=== PATIENT | female | born 1945 | race Caucasian/White ===

== ENCOUNTER 2017-10-14 23:35 | Emergency (ER) | payer OTHER ==
[~2017-10-14] VITALS: Ht 149.9 cm; Wt 61.1 kg
[~2017-10-14 23:35] MED LIST: DICY20TA35 PO; DIPH25CA65 PO; LACT1TAB4 PO; LISI-729 PO; ONDA4TAB7 SL; RXC5 PO; SENNTAB23 PO; SUMA25TA PO; TRAM-453 PO
[2017-10-14 23:37] VITALS: TEMP 36.8; Ht 149.9 cm; Wt 61.1 kg
[2017-10-14] MEDS ORDERED: SODIUM CHLORIDE 0.9% 1000ML 1,000 ML IV STA (23:49)
[2017-10-14] MEDS ORDERED: ONDANSETRON INJ 2 MG/ML 2 ML VIAL IV STA (23:49)
[2017-10-14] MEDS ORDERED: MoRPHine SULFATE 10 MG/ML CARP/VIAL IV STA (23:49)
--- NOTE | 2017-10-15 00:06 | EMERGENCY ROOM VISIT NOTE ---
History Report prepared by Staci: Octavio Casas Under the Supervision of: Dr. Kit Hoyt M.D. First contact with patient: 23:45 Chief Complaint: ABDOMINAL PAIN Stated Complaint: STOMACH PAIN, DIARRHEA History of Present Illness The patient is a 72 year old female who presents to the Emergency Room with complaints of constant abdominal pain that began at 1600. She rates her discomfort as an 8/10 in severity. The patient states that she has a history of colitis, and she believes is currently experiencing a colitis attack. She states that she has been experiencing constant diarrhea and abdominal pain throughout the day. The patient states that she has been experiencing blood in her diarrhea. She reports that she tried to take Bentyl for her symptoms, but reports she became nauseous and vomited it back up. The patient denies fevers, chills, syncope, chest pain, and shortness of breath. The patient states that she recently had a sinus infection a couple of weeks ago. She reports that she went to her doctor who prescribed amoxicillin and told her to take until she felt better. The patient states that she only took two days worth of antibiotics and reports she felt relieved of symptoms. She starts that during this time, she was also using probiotics. Source of History: patient Onset: 1600 Position: abdomen Symptom Intensity: 8/10 Timing: constant Associated Symptoms: + nausea, + vomiting, + diarrhea (with blood), No LOC, No fevers, No chills, No chest pain, No SOB Review of Systems See HPI for pertinent positives & negatives. A total of 10 systems reviewed and were otherwise negative. Past Medical & Surgical Medical Problems: (1) Cardiac Dysrhythmia Nos (2) Chronic Sinusitis Nos (3) Clostridium difficile colitis (4) Hypertension Nos (5) Rectal bleeding Family History No significant family history Social History Smoking Status: Never Smoker Alcohol Use: none Drug Use: none Marital Status: Housing Status: lives with family Occupation Status: retired Current/Historical Medications Scheduled Lactobacillus (Floranex), 3-4 TAB PO QID Lisinopril (Zestril), 5 MG PO QAM Sennosides-Docusate Sodium (Stool Softener), 1 TAB PO QAM Sumatriptan Succinate (Imitrex), 25 MG PO DIRECTED Scheduled PRN Dicyclomine Hcl (Bentyl), 20 MG PO DAILY PRN for PRN Diphenhydramine Hcl (Benadryl Allergy), 25 MG PO DAILY PRN for PRN Tramadol Hcl (Ultram), 1-2 TABLETS PO Q6 PRN for Pain Allergies Coded Allergies: Adhesives (Verified Allergy, Unknown, ADHESIVE TAPE = REDNESS/ TEARS SKIN- EVEN PAPER TAPE, 05/02/15) Amoxicillin (Verified Adverse Reaction, Unknown, got c.diff after taking amoxicillin 2012, 05/02/15) Physical Exam Vital Signs Date Time Temp Pulse Resp B/P (MAP) Pulse Ox O2 Delivery O2 Flow Rate FiO2 10/15/17 02:00 155/79 10/15/17 01:55 82 97 10/15/17 01:40 82 16 94 10/15/17 01:32 169/84 10/15/17 01:31 77 16 169/84 94 Room Air 10/15/17 01:25 72 13 94 10/15/17 01:10 73 12 92 10/15/17 01:01 145/82 10/15/17 00:55 72 13 93 10/15/17 00:40 83 12 93 10/15/17 00:35 81 13 92 10/15/17 00:31 166/86 10/15/17 00:20 77 18 96 10/15/17 00:05 88 14 95 Room Air 10/15/17 00:01 182/92 10/14/17 23:55 184/102 10/14/17 23:37 36.8 84 20 165/104 97 Room Air Physical Exam GENERAL: Patient is uncomfortable appearing and in moderate distress. HEENT: No acute trauma, normocephalic atraumatic, mucous membranes moist, no nasal congestion, no scleral icterus. NECK: No stridor, no adenopathy, no meningismus, trachea is midline. LUNGS: No dyspnea. Clear to auscultation and equal bilaterally. No wheeze, no rhonchi. HEART: Regular rate and rhythm. No murmurs, rubs, gallops appreciated. ABDOMEN: Soft, mild tenderness to entire abdomen, hyperactive bowel sounds, no masses appreciated, no peritonitis. BACK: No midline tenderness, no CVA tenderness EXTREMITIES: Normal motion all extremities, no cyanosis, no edema. NEUROLOGIC: Alert and oriented, no acute motor or sensory deficits, no focal weakness, cranial nerves grossly intact. SKIN: No rash, no jaundice, no diaphoresis. Medical Decision & Procedures Laboratory Results 10/14/17 00:00 Red Blood Count 4.64, Mean Corpuscular Volume 87.7, Mean Corpuscular Hemoglobin 30.2, Mean Corpuscular Hemoglobin Concent 34.4, Mean Platelet Volume 9.3, Neutrophils (%) (Auto) 63.0, Lymphocytes (%) (Auto) 27.5, Monocytes (%) (Auto) 7.6, Eosinophils (%) (Auto) 1.1, Basophils (%) (Auto) 0.4, Neutrophils # (Auto) 5.66, Lymphocytes # (Auto) 2.47, Monocytes # (Auto) 0.68, Eosinophils # (Auto) 0.10, Basophils # (Auto) 0.04 10/14/17 00:00 Test 10/14/17 00:00 White Blood Count 8.99 K/uL (4.8-10.8) Red Blood Count 4.64 M/uL (4.2-5.4) Hemoglobin 14.0 g/dL (12.0-16.0) Hematocrit 40.7 % (37-47) Mean Corpuscular Volume 87.7 fL (80-100) Mean Corpuscular Hemoglobin 30.2 pg (25-34) Mean Corpuscular Hemoglobin Concent 34.4 g/dl (32-36) Platelet Count 302 K/uL (130-400) Mean Platelet Volume 9.3 fL (7.4-10.4) Neutrophils (%) (Auto) 63.0 % Lymphocytes (%) (Auto) 27.5 % Monocytes (%) (Auto) 7.6 % Eosinophils (%) (Auto) 1.1 % Basophils (%) (Auto) 0.4 % Neutrophils # (Auto) 5.66 K/uL (1.4-6.5) Lymphocytes # (Auto) 2.47 K/uL (1.2-3.4) Monocytes # (Auto) 0.68 K/uL (0.11-0.59) Eosinophils # (Auto) 0.10 K/uL (0-0.5) Basophils # (Auto) 0.04 K/uL (0-0.2) RDW Standard Deviation 41.5 fL (36.4-46.3) RDW Coefficient of Variation 12.9 % (11.5-14.5) Immature Granulocyte % (Auto) 0.4 % Immature Granulocyte # (Auto) 0.04 K/uL (0.00-0.02) Anion Gap 3.0 mmol/L (3-11) Est Creatinine Clear Calc Drug Dose 61.2 ml/min Estimated GFR () 102.7 Estimated GFR (Non- 88.6 BUN/Creatinine Ratio 13.9 (10-20) Calcium Level 8.8 mg/dl (8.5-10.1) Total Bilirubin 0.3 mg/dl (0.2-1) Direct Bilirubin < 0.1 mg/dl (0-0.2) Aspartate Amino Transf (AST/SGOT) 18 U/L (15-37) Alanine Aminotransferase (ALT/SGPT) 30 U/L (12-78) Alkaline Phosphatase 70 U/L (45-117) Total Protein 6.8 gm/dl (6.4-8.2) Albumin 3.4 gm/dl (3.4-5.0) Lipase 118 U/L (73-393) Laboratory results as reviewed by me. Medications Administered Medications (Trade) Dose Ordered Sig/Lu Route Start Time Stop Time Status Last Admin Dose Admin Morphine Sulfate (MoRPHine SULFATE INJ) 6 mg NOW STAT IV 10/14/17 23:49 10/14/17 23:52 DC 10/15/17 00:11 6 MG Ondansetron HCl (Zofran Inj) 4 mg NOW STAT IV 10/14/17 23:49 10/14/17 23:52 DC 10/15/17 00:15 4 MG Sodium Chloride 1,000 ml @ 999 mls/hr Q1H1M STAT IV 10/14/17 23:49 10/15/17 00:49 DC 10/15/17 00:09 999 MLS/HR Morphine Sulfate (MoRPHine SULFATE INJ) 4 mg NOW STAT IV 10/15/17 00:59 10/15/17 01:00 DC 10/15/17 01:30 4 MG Ondansetron HCl (ZOFRAN ODT 4MG Home Pack) 1 homepack UD ONCE PO 10/15/17 02:00 10/15/17 02:01 DC 10/15/17 01:59 1 HOMEPACK ED Course 2345: The patient was evaluated in room B10. A complete history and physical exam was performed. 2349: Ordered Sodium Chloride 1000 ml @ 999 mls/hr IV, Zofran Injection 4 mg IV , Morphine Sulfate 6 mg IV. 0051: I reevaluated the patient and she is improved, but she would like more pain medication. 0059: Ordered Morphine Sulfate 4 mg IV. 0153: Reevaluated the patient. Discussed results and discharge instructions, including nausea medication: She verbalized understanding and agreement. The patient is ready for discharge. 0200: Ordered Ondansetron HCl 1 homepack PO. Medical Decision Differential: Viral, Bacterial, Parasitic, Iatrogenic, C-Diff, Malabsorption, Irritable Bowel Disease, IBS, Ischemic Bowel, amongst other pathologies entertained. 72 yr old female with history of intermittent abdominal issues with diarrhea and blood in stool. Tonight with similar episode resulting in nausea, vomiting and diarrhea. Uncomfortable on arrival. Labs look good. Per usual course symptoms fully abated with second dose Morphine and fluids. She wishes to go home. No BM here for testing. follow up PCP, though discussed RTED if worsening symptoms or other concerns. Medication Reconcilliation Current Medication List: was personally reviewed by me Blood Pressure Screening Patient's blood pressure: Elevated blood pressure Blood pressure disposition: Referred to PCP Impression Primary Impression: Acute gastroenteritis Scribe Attestation The scribe's documentation has been prepared under my direction and personally reviewed by me in its entirety. I confirm that the note above accurately reflects all work, treatment, procedures, and medical decision making performed by me. Departure Information Dispostion Home / Self-Care Referrals Tiffany Albarado D.O. (PCP) Patient Instructions ED Gastroenteritis Viral, [facility]
[2017-10-15 00:12] LABS: BASO % 0.4 %; BASO ABS # 0.04 K/uL (0-0.2); COMPLETE YES; EOS % 1.1 %; HEMATOCRIT 40.7 % (37-47); IG% 0.4 %; LYMPH % 27.5 %; LYMPH ABS # 2.47 K/uL (1.2-3.4); MEAN CELL VOLUME 87.7 fL (80-100); MEAN CORPUSCULAR HEMOGLOBIN 30.2 pg (25-34); MEAN CORPUSCULAR HGB CONC 34.4 g/dl (32-36); MEAN PLATELET VOLUME 9.3 fL (7.4-10.4); MONO % 7.6 %; PLATELET COUNT 302 K/uL (130-400); RED BLOOD COUNT 4.64 M/uL (4.2-5.4); WHITE BLOOD COUNT 8.99 K/uL (4.8-10.8)
[2017-10-15 00:29] LABS: BLOOD UREA NITROGEN 9 mg/dl (7-18); BUN/CREATININE RATIO 13.9 (10-20); CHLORIDE 106 mmol/L (98-107); CREATININE 0.68 mg/dl (0.60-1.20); GLUCOSE 100 mg/dl (70-99); POTASSIUM 3.6 mmol/L (3.5-5.1); SODIUM 141 mmol/L (136-145)
[2017-10-15 00:30] LABS: ALT/SGPT 30 U/L (12-78); AST/SGOT 18 U/L (15-37); CALCIUM 8.8 mg/dl (8.5-10.1); CARBON DIOXIDE 32 mmol/L (21-32)
[2017-10-15 00:32] LABS: ALKALINE PHOSPHATASE 70 U/L (45-117)
[2017-10-15] MEDS ORDERED: MoRPHine SULFATE 4 MG/ML 1 ML CARP\\VIAL IV STA (00:59)
[2017-10-15 01:55] VITALS: PULSE 82; O2SAT 97
[2017-10-15 02:00] VITALS: BP 155/79
[2017-10-15] MEDS ORDERED: ONDANSETRON HOME PACK 4MG OD TAB PO ONE (02:00)
== END 2017-10-15 02:06 | disposition home or self-care (01) ==
LOC: C.EDB 23:36
DX: K52.9 Noninfective gastroenteritis and colitis, unspecified (principal); I10 Essential (primary) hypertension; Z87.19 Personal history of other diseases of the digestive system; Z79.899 Other long term (current) drug therapy; Z88.1 Allergy status to other antibiotic agents; Z91.09 Other allergy status, other than to drugs and biological substances